=== PATIENT | female | born 1940 | race African-American/Black ===

== ENCOUNTER 2020-04-15 11:32 | Inpatient (IN) | payer MEDICARE, MEDICAID ==
[~2020-04-15] VITALS: Ht 165.1 cm; Wt 103.0 kg
[2020-04-15] MEDS ORDERED: LEVETIRACETAM 1000MG/100ML 100 ML IV ONE (12:00)
[2020-04-15 12:41] LABS: BASOPHILS % 0.7 % (0.0-2.0); EOSINOPHILS % 2.2 % (0.0-5.0); HEMATOCRIT. 36.3 % (36.0-48.0); LYMPHOCYTES % 21.7 % (20.0-50.0); MEAN CORPUSCULAR HEMOGLOBIN 29.2 pg (28.0-32.0); MEAN CORPUSCULAR VOLUME 88.2 fL (81.0-99.0); MEAN PLATELET VOLUME 8.4 fl (7.4-10.4); NEUTROPHILS % 68.4 % (40.0-76.0); PLATELET 222 x1000/uL (130-400); RED BLOOD CELL COUNT 4.11 mill/uL (4.2-5.4); RED CELL DISTRIBUTION WIDTH 13.5 % (11.6-14.6)
[2020-04-15 12:45] LABS: CHLORIDE 105 mEq/L (98-107)
[2020-04-15 12:50] LABS: ETHANOL BLOOD < 10 mg/dL
[2020-04-15] MEDS ORDERED: IPRATROPIUM/ALBUTEROL 0.5-3(2.5)MG/3ML NEB NEB PRN (14:30)
[2020-04-15] MEDS ORDERED: ACETAMINOPHEN 325MG TABLET PO PRN ×2 (14:30)
[2020-04-15] MEDS ORDERED: ONDANSETRON HCL 4MG/2ML INJ IV PRN (14:30)
[2020-04-15] MEDS ORDERED: CLONIDINE 0.1MG TABLET PO PRN (14:30)
[2020-04-15] MEDS ORDERED: MAGNESIUM/ALUMINUM HYDROXIDE/SIMETHICONE 30ML UDC PO PRN (14:30)
[2020-04-15] MEDS ORDERED: DOCUSATE SODIUM 100MG CAPSULE PO PRN (14:30)
[2020-04-15] MEDS ORDERED: GUAIFENESIN 200MG/10ML SUGAR FREE UDC PO PRN (14:30)
[2020-04-15] MEDS ORDERED: NITROGLYCERIN 0.4MG TABLET SL SL PRN (14:30)
[2020-04-15] MEDS ORDERED: DEXTROSE 50% WATER 50ML SYRINGE IV PRN (14:30)
[2020-04-15] MEDS: FAMOTIDINE 20MG TABLET PO SCH (15:00)
[2020-04-15] MEDS: BLOOD SUGAR DIAGNOSTIC STRIP TEST SCH ×2 (17:00→21:50)
[2020-04-15] MEDS: APIXABAN 5 MG TABLET PO SCH (18:00)
[2020-04-15 18:41] LABS: CLARITY URINE CLOUDY (CLEAR); COLOR URINE YELLOW (YELLOW); KETONES URINE NEGATIVE (NEGATIVE); LEUKOCYTE ESTERASE URINE 3+ (NEGATIVE); NITRITE URINE POSITIVE (NEGATIVE); OCCULT BLOOD URINE 2+ (NEGATIVE); PROTEIN URINE TRACE (NEGATIVE); SPECIFIC GRAVITY URINE 1.026 (1.005-1.030)
[2020-04-15 18:56] LABS: *BARBITURATES SCREEN URINE NEGATIVE (NEGATIVE); *BENZODIAZEPINES SCREEN URINE NEGATIVE (NEGATIVE); *COCAINE SCREEN URINE NEGATIVE (NEGATIVE); CANNABINOID URINE SCREEN NEGATIVE (NEGATIVE); METHADONE URINE SCREEN NEGATIVE (NEGATIVE); OPIATES URINE SCREEN NEGATIVE (NEGATIVE); PHENCYCLIDINE URINE SCREEN NEGATIVE (NEGATIVE)
[2020-04-15 18:57] LABS: *AMPHETAMINES SCREEN URINE NEGATIVE (NEGATIVE)
[2020-04-15] MEDS: ASCORBIC ACID 500 MG TABLET PO SCH (21:00)
[2020-04-15] MEDS ORDERED: LEVETIRACETAM 500MG PREMIX 100 ML IV SCH (21:00)
[2020-04-15] MEDS: CEFTRIAXONE 1 G PREMIX 50 ML IV SCH (21:30)
[2020-04-15] MEDS: INSULIN LISPRO 100 UNITS/ML SUBCUT SCH (21:50)
[2020-04-15] MEDS: LORAZEPAM 2MG/ML CPJ IV PRN (22:23)
[2020-04-15 23:20] LABS: CREATINE KINASE 92 IU/L (26-192)
[2020-04-15 23:21] LABS: CREATINE KINASE MB FRACTION < 1.0 ng/mL (0.5-3.6)
[2020-04-15 23:45] VITALS: BP 108/57
[2020-04-16] VITALS: BP 108/57
[2020-04-16] MEDS: CEFTRIAXONE 1 G PREMIX 50 ML IV SCH (00:03)
[2020-04-16] MEDS ORDERED: HYDR-3281 GT (01:14)
[2020-04-16] MEDS ORDERED: COR6 GT (01:14)
[2020-04-16] MEDS ORDERED: RIVA20TA GT (01:14)
[2020-04-16] MEDS ORDERED: LISI-650 GT (01:14)
[2020-04-16] MEDS ORDERED: LEVE1000 GT (01:14)
[2020-04-16] MEDS ORDERED: DOCU-138 GT (01:14)
[2020-04-16 04:00] VITALS: BP 111/61
[2020-04-16] MEDS: BLOOD SUGAR DIAGNOSTIC STRIP TEST SCH ×4 (05:49→21:05)
[2020-04-16 08:00] VITALS: BP 116/66
[2020-04-16] MEDS: ZINC SULFATE 220 MG ( 50 ) CAPSULE PO SCH (08:22)
[2020-04-16] MEDS: FAMOTIDINE 20MG TABLET PO SCH (08:22)
[2020-04-16] MEDS: CLOPIDOGREL 75MG TABLET PO SCH (08:22)
[2020-04-16] MEDS: ASCORBIC ACID 500 MG TABLET PO SCH ×2 (08:22→20:57)
[2020-04-16] MEDS: INSULIN LISPRO 100 UNITS/ML SUBCUT SCH ×4 (08:24→21:00)
[2020-04-16] MEDS: APIXABAN 5 MG TABLET PO SCH ×2 (08:28→18:26)
[2020-04-16 09:36] LABS: CREATINE KINASE 79 IU/L (26-192)
[2020-04-16 09:37] LABS: CREATINE KINASE MB FRACTION < 1.0 ng/mL (0.5-3.6)
[2020-04-16] MEDS: LEVETIRACETAM 500MG PREMIX 100 ML IV SCH ×2 (10:30→20:57)
[2020-04-16 12:00] VITALS: BP 123/69
[2020-04-16] MEDS: CEFTRIAXONE 1,000 MG in DEXTROSE 5% WATER 50 ML IV SCH (13:16)
[2020-04-16 16:00] VITALS: BP 145/84
[2020-04-16 20:00] VITALS: BP 130/68
[2020-04-16] MEDS: ZOLPIDEM TARTRATE 5MG TABLET PO PRN (20:57)
[2020-04-17] VITALS: BP 116/72
[2020-04-17 04:00] VITALS: BP 125/79
[2020-04-17] MEDS: TRAMADOL 50MG TABLET PO PRN ×2 (04:08→20:13)
[2020-04-17] MEDS: APIXABAN 5 MG TABLET PO SCH ×2 (05:01→18:06)
[2020-04-17] MEDS: BLOOD SUGAR DIAGNOSTIC STRIP TEST SCH ×4 (06:12→21:18)
[2020-04-17] MEDS: INSULIN LISPRO 100 UNITS/ML SUBCUT SCH ×4 (06:16→21:53)
[2020-04-17 08:00] VITALS: BP 150/84
[2020-04-17] MEDS: FAMOTIDINE 20MG TABLET PO SCH (08:35)
[2020-04-17] MEDS: ZINC SULFATE 220 MG ( 50 ) CAPSULE PO SCH (08:35)
[2020-04-17] MEDS: CLOPIDOGREL 75MG TABLET PO SCH (08:35)
[2020-04-17] MEDS: ASCORBIC ACID 500 MG TABLET PO SCH ×2 (08:35→20:13)
[2020-04-17] MEDS: LEVETIRACETAM 500MG PREMIX 100 ML IV SCH ×2 (08:36→21:01)
[2020-04-17 12:00] VITALS: BP 138/76
[2020-04-17] MEDS: CEFTRIAXONE 1,000 MG in DEXTROSE 5% WATER 50 ML IV SCH (13:18)
[2020-04-17 16:00] VITALS: BP 141/69
[2020-04-17] MEDS: LORAZEPAM 2MG/ML CPJ IV PRN (19:56)
[2020-04-17 20:00] VITALS: BP 140/59
[2020-04-17] MEDS: ZOLPIDEM TARTRATE 5MG TABLET PO PRN (20:13)
[2020-04-18] VITALS: BP 118/61
[2020-04-18 04:00] VITALS: BP 150/72
[2020-04-18] MEDS: BLOOD SUGAR DIAGNOSTIC STRIP TEST SCH ×4 (06:07→21:00)
[2020-04-18] MEDS: INSULIN LISPRO 100 UNITS/ML SUBCUT SCH ×4 (06:08→21:00)
[2020-04-18] MEDS: APIXABAN 5 MG TABLET PO SCH ×2 (06:15→10:32)
[2020-04-18 08:00] VITALS: BP 133/95
[2020-04-18] MEDS: FAMOTIDINE 20MG TABLET PO SCH (10:32)
[2020-04-18] MEDS: ASCORBIC ACID 500 MG TABLET PO SCH ×2 (10:32→21:05)
[2020-04-18] MEDS: ZINC SULFATE 220 MG ( 50 ) CAPSULE PO SCH (10:32)
[2020-04-18] MEDS: CLOPIDOGREL 75MG TABLET PO SCH (10:32)
[2020-04-18] MEDS: LEVETIRACETAM 500MG/5ML CUP PO SCH ×2 (13:21→21:28)
[2020-04-18] MEDS: MEROPENEM 1000MG in NORMAL SALINE 100ML IV SCH ×2 (14:46→21:05)
[2020-04-18 16:00] VITALS: BP 122/68
[2020-04-18 20:00] VITALS: BP 137/75
[2020-04-18] MEDS: ZOLPIDEM TARTRATE 5MG TABLET PO PRN (21:29)
[2020-04-18] MEDS: TRAMADOL 50MG TABLET PO PRN (21:31)
[2020-04-19] VITALS: BP 113/60
[2020-04-19 04:00] VITALS: BP 129/75
[2020-04-19] MEDS: MEROPENEM 1000MG in NORMAL SALINE 100ML IV SCH ×2 (06:34→13:13)
[2020-04-19] MEDS: APIXABAN 5 MG TABLET PO SCH ×2 (06:34→18:58)
[2020-04-19] MEDS: BLOOD SUGAR DIAGNOSTIC STRIP TEST SCH ×4 (07:10→21:05)
[2020-04-19] MEDS: INSULIN LISPRO 100 UNITS/ML SUBCUT SCH ×5 (07:40→21:04)
[2020-04-19 08:00] VITALS: BP 143/68
[2020-04-19] MEDS: LEVETIRACETAM 500MG/5ML CUP PO SCH ×2 (09:14→20:37)
[2020-04-19] MEDS: ZINC SULFATE 220 MG ( 50 ) CAPSULE PO SCH (09:14)
[2020-04-19] MEDS: CLOPIDOGREL 75MG TABLET PO SCH (09:14)
[2020-04-19] MEDS: FAMOTIDINE 20MG TABLET PO SCH (09:14)
[2020-04-19] MEDS: ASCORBIC ACID 500 MG TABLET PO SCH ×2 (09:15→20:37)
[2020-04-19 12:00] VITALS: BP 143/68
[2020-04-19 16:00] VITALS: BP 148/74
[2020-04-19] MEDS ORDERED: *TOBRAMYCIN PER PHARMACY XX SCH (16:15)
[2020-04-19] MEDS: LORAZEPAM 2MG/ML CPJ IV PRN (16:39)
[2020-04-19] MEDS ORDERED: TOBRAMYCIN SULFATE 140 MG in SODIUM CHLORIDE 0.9% 100 ML IV SCH (18:30)
[2020-04-19 20:00] VITALS: BP 137/62
[2020-04-20] VITALS: BP 160/90
[2020-04-20 04:00] VITALS: BP 140/81
[2020-04-20] MEDS: APIXABAN 5 MG TABLET PO SCH ×2 (06:44→18:03)
[2020-04-20] MEDS: INSULIN LISPRO 100 UNITS/ML SUBCUT SCH ×4 (06:45→21:05)
[2020-04-20] MEDS: LORAZEPAM 2MG/ML CPJ IV PRN ×2 (06:45→12:51)
[2020-04-20] MEDS: BLOOD SUGAR DIAGNOSTIC STRIP TEST SCH ×4 (06:46→21:05)
[2020-04-20 08:00] VITALS: BP_SYST 160; BP_DIAS 70; BP_DIAS 71
[2020-04-20] MEDS: ASCORBIC ACID 500 MG TABLET PO SCH ×2 (08:36→21:04)
[2020-04-20] MEDS: ZINC SULFATE 220 MG ( 50 ) CAPSULE PO SCH (08:36)
[2020-04-20] MEDS: LEVETIRACETAM 500MG/5ML CUP PO SCH ×2 (08:36→21:04)
[2020-04-20] MEDS: FAMOTIDINE 20MG TABLET PO SCH (08:36)
[2020-04-20] MEDS: CLOPIDOGREL 75MG TABLET PO SCH (08:36)
[2020-04-20] MEDS: DIVALPROEX SODIUM 250MG DR TABLET PO SCH ×3 (10:26→21:04)
[2020-04-20 12:00] VITALS: BP 138/74
[2020-04-20] MEDS: TOBRAMYCIN SULFATE 100 MG in SODIUM CHLORIDE 0.9% 100 ML IV SCH (15:20)
[2020-04-20 16:00] VITALS: BP 157/68
[2020-04-20 16:05] LABS: CHLORIDE 111 mEq/L (98-107)
[2020-04-20 20:00] VITALS: BP 168/83
[2020-04-21] VITALS: BP 145/69
[2020-04-21 04:00] VITALS: BP 150/74
[2020-04-21] MEDS: DIVALPROEX SODIUM 250MG DR TABLET PO SCH ×3 (06:05→20:41)
[2020-04-21] MEDS: TOBRAMYCIN SULFATE 100 MG in SODIUM CHLORIDE 0.9% 100 ML IV SCH (06:05)
[2020-04-21] MEDS: APIXABAN 5 MG TABLET PO SCH ×2 (06:05→17:41)
[2020-04-21] MEDS: INSULIN LISPRO 100 UNITS/ML SUBCUT SCH ×4 (06:06→20:59)
[2020-04-21] MEDS: BLOOD SUGAR DIAGNOSTIC STRIP TEST SCH ×4 (06:06→20:11)
[2020-04-21 07:59] LABS: CHLORIDE 101 mEq/L (98-107)
[2020-04-21 08:00] VITALS: BP 159/71
[2020-04-21] MEDS: CLOPIDOGREL 75MG TABLET PO SCH (08:34)
[2020-04-21] MEDS: ASCORBIC ACID 500 MG TABLET PO SCH ×2 (08:34→20:41)
[2020-04-21] MEDS: FAMOTIDINE 20MG TABLET PO SCH (08:34)
[2020-04-21] MEDS: LEVETIRACETAM 500MG/5ML CUP PO SCH ×2 (08:35→20:41)
[2020-04-21] MEDS: ZINC SULFATE 220 MG ( 50 ) CAPSULE PO SCH (08:35)
[2020-04-21 12:00] VITALS: BP 102/84
[2020-04-21 16:00] VITALS: BP 99/51
[2020-04-21 19:24] LABS: FOLIC ACID (FOLATE) SERUM 19.3 ng/mL (>5.38)
[2020-04-21 20:00] VITALS: BP 149/63
[2020-04-21 21:44] LABS: T4 FREE 1.21 ng/dL (0.76-1.46)
[2020-04-22] VITALS: BP 136/72
[2020-04-22 04:00] VITALS: BP 140/66
[2020-04-22] MEDS: BLOOD SUGAR DIAGNOSTIC STRIP TEST SCH (05:34)
[2020-04-22] MEDS: APIXABAN 5 MG TABLET PO SCH (05:45)
[2020-04-22] MEDS: DIVALPROEX SODIUM 250MG DR TABLET PO SCH (05:45)
[2020-04-22] MEDS: INSULIN LISPRO 100 UNITS/ML SUBCUT SCH (05:49)
[2020-04-22 06:19] LABS: CHLORIDE 99 mEq/L (98-107)
[2020-04-22 06:39] LABS: PHOSPHORUS 3.5 mg/dL (2.5-4.9)
[2020-04-22 06:46] LABS: BASOPHILS % 0.6 % (0.0-2.0); EOSINOPHILS % 2.3 % (0.0-5.0); HEMATOCRIT. 36.6 % (36.0-48.0); HEMOGLOBIN. 12.5 g/dL (12.0-16.0); LYMPHOCYTES % 25.4 % (20.0-50.0); MEAN CORPUSCULAR HEMOGLOBIN 29.8 pg (28.0-32.0); MEAN CORPUSCULAR VOLUME 87.5 fL (81.0-99.0); MEAN PLATELET VOLUME 8.4 fl (7.4-10.4); MONOCYTES % 7.8 % (2.0-8.0); NEUTROPHILS % 63.9 % (40.0-76.0); PLATELET 330 x1000/uL (130-400); RED BLOOD CELL COUNT 4.19 mill/uL (4.2-5.4); RED CELL DISTRIBUTION WIDTH 13.3 % (11.6-14.6)
[2020-04-22 08:00] VITALS: BP_SYST 141; BP_DIAS 70; BP_DIAS 85
[2020-04-22] MEDS: FAMOTIDINE 20MG TABLET PO SCH (08:20)
[2020-04-22] MEDS: ASCORBIC ACID 500 MG TABLET PO SCH (08:20)
[2020-04-22] MEDS: ZINC SULFATE 220 MG ( 50 ) CAPSULE PO SCH (08:20)
[2020-04-22] MEDS: LEVETIRACETAM 500MG/5ML CUP PO SCH ×2 (08:21→08:29)
[2020-04-22 09:33] VITALS: BP 141/77
== END 2020-04-22 11:35 | DRG 45 ==
LOC: ER 11:49 → EDBEDREQTM 14:11 → EDBEDREQ 14:11 → SUPCPDRO 14:19 → ENRESERV 20:15 → 8WST 04-16 00:50
PROVIDERS: ADMIT Internal Medicine; ATTEND Internal Medicine
DX: I63.9 Cerebral infarction, unspecified (principal); G40.909 Epilepsy, unspecified, not intractable, without status epilepticus; G92 Toxic encephalopathy; N39.0 Urinary tract infection, site not specified; E44.0 Moderate protein-calorie malnutrition; F03.90 Unspecified dementia, unspecified severity, without behavioral disturbance, psychotic disturbance, mood disturbance, and anxiety; E11.9 Type 2 diabetes mellitus without complications; F20.9 Schizophrenia, unspecified; I48.91 Unspecified atrial fibrillation; Z20.828 Contact with and (suspected) exposure to other viral communicable diseases; I10 Essential (primary) hypertension; Z16.12 Extended spectrum beta lactamase (ESBL) resistance; I82.409 Acute embolism and thrombosis of unspecified deep veins of unspecified lower extremity; I69.351 Hemiplegia and hemiparesis following cerebral infarction affecting right dominant side; Z68.37 Body mass index [BMI] 37.0-37.9, adult; Z79.4 Long term (current) use of insulin; Z79.899 Other long term (current) drug therapy
CPT/HCPCS: 36415; 70544; 70551; 71045; 80048; 80053; 80061; 80305; 80320; 81003; 82550; 82553; 82607; 82746; 82962; 83036; 83735; 84100; 84439; 84443; 84481; 84484; 85025; 87077; 87186; 87635; 93005; 93306; 93880; 93970; 97167; 99285; J0696; J1815; J1953; J2060; J2185; J3260; J7050; J7060; G0480